=== PATIENT | female | born 1945 | race Caucasian/White ===

== ENCOUNTER → 2020-07-29 | Outpatient (CLI) | payer MEDICARE | LOC: EXRD 07:25 | DX: K85.90 Acute pancreatitis without necrosis or infection, unspecified (principal); Z90.49 Acquired absence of other specified parts of digestive tract | CPT/HCPCS: 76700 ==

== ENCOUNTER → 2020-08-13 | Outpatient (CLI) | payer MEDICARE | LOC: CT 07-31 10:00 | DX: I77.1 Stricture of artery (principal); I65.23 Occlusion and stenosis of bilateral carotid arteries; R91.1 Solitary pulmonary nodule | CPT/HCPCS: 36415; 70498; 82565; Q9967 ==

== ENCOUNTER → 2020-10-08 | Outpatient (CLI) | payer MEDICARE | LOC: CT 09:11 | DX: R10.13 Epigastric pain (principal); I70.0 Atherosclerosis of aorta; I70.1 Atherosclerosis of renal artery | CPT/HCPCS: 74160; 82656; 87045; 87046; 87449; Q9967 ==

== ENCOUNTER → 2020-11-05 | Outpatient (CLI) | payer MEDICARE | LOC: LAB 11:38 | DX: K76.9 Liver disease, unspecified (principal); C22.7 Other specified carcinomas of liver | CPT/HCPCS: 36415; 82105 ==

== ENCOUNTER → 2021-04-30 | Outpatient (CLI) | payer MEDICARE | LOC: CT 10:21 | DX: K76.9 Liver disease, unspecified (principal) | CPT/HCPCS: 36415; 74170; 82565; Q9967 ==

== ENCOUNTER → 2021-09-21 | Outpatient (CLI) | payer MEDICARE | LOC: KOH-I 08:00 | DX: R91.8 Other nonspecific abnormal finding of lung field (principal) | CPT/HCPCS: 71250 ==